=== PATIENT | female | born 1935 | race Caucasian/White ===

== ENCOUNTER → 2016-05-29 | Outpatient (CLI) | payer MEDICARE, BC ==
--- NOTE | 2016-05-29 15:36 | US ---
EXAMINATION TYPE: US carotid duplex BILAT DATE OF EXAM: 05/29/2016 2:24 PM COMPARISON: NONE CLINICAL HISTORY: G45.9 TIA, H53.9 Visual disturbances per order. EXAM MEASUREMENTS: RIGHT: Peak Systolic Velocity (PSV) cm/sec ----- Right CCA: 51.2 ----- Right ICA: 87.7 ----- Right ECA: 74.5 ICA/CCA ratio: 1.7 RIGHT: End Diastole cm/sec ----- Right CCA: 13.8 ----- Right ICA: 20.5 ----- Right ECA: 7.3 LEFT: Peak Systolic Velocity (PSV) cm/sec ----- Left CCA: 62.7 ----- Left ICA: 81.1 ----- Left ECA: 76.7 ICA/CCA ratio: 1.3 LEFT: End Diastole cm/sec ----- Left CCA: 17.2 ----- Left ICA: 24.9 ----- Left ECA: 8.4 VERTEBRALS (direction of flow): Right Vertebral: antegrade Left Vertebral: antegrade Mild atherosclerotic changes with no significant velocity increases. Grayscale images show minimal peripheral plaque in bilateral carotid bulbs, left greater than right. Velocity measurements and ratios remain within normal limits bilaterally. IMPRESSION: No hemodynamically significant stenosis is seen in either internal carotid artery.
== END | disposition home or self-care (01) ==
LOC: RADUSWWP 12:37
PROVIDERS: ATTEND Internal Medicine
DX: G45.9 Transient cerebral ischemic attack, unspecified (principal); H53.9 Unspecified visual disturbance
CPT/HCPCS: 93880

== ENCOUNTER → 2016-10-18 | Outpatient (CLI) | payer MEDICARE, BC ==
--- NOTE | 2016-10-20 07:48 | ENG ---
ELECTRONYSTAGMOGRAM REPORT VNG REPORT: AGE: 81. VNG INDICATIONS: Dizziness and vertigo starting 4 months ago, gradual onset, staying about the same. Dizziness can be precipitated by rolling over on the right or left side, going from a lying to a seated position, looking up or back position, bending over or head down position. Denies difficulty with hearing and has a steady tinnitus in both ears. VNG FINDINGS: Saccades showing intact peak velocities, accuracies and latencies. Gaze with fixation shows no nystagmus in any of the directions of gaze including centrally with vision denied. Tracking shows no significant breakups. Opticokinetic nystagmus shows no significant asymmetry. Static position testing in 6 positions with eyes open and with vision denied shows no nystagmus in any of the positions. Lincoln-Hallpike maneuvers are negative bilaterally. Caloric testing shows an adequate response with a 6% unilateral right calorie weakness, which is within normal limits. IMPRESSION: Unremarkable VNG study. MMODL / IJN: [id number] /
== END | disposition home or self-care (01) ==
LOC: NEUROMAIN 06:43
PROVIDERS: ATTEND Otolaryngology
DX: R42 Dizziness and giddiness (principal)
CPT/HCPCS: 92537; 92540

== ENCOUNTER → 2021-04-27 | Outpatient (CLI) | payer MEDICARE, BC ==
--- NOTE | 2021-04-27 12:48 | ECHOF ---
Referral Reason:I34.0 NONRHEUMATIC MITRAL (VALVE) INSUFFICIENCY MEASUREMENTS -------- HEIGHT: 152.4 cm WEIGHT: 74.8 kg BP: RVIDd: 2.2 cm (< 3.3) IVSd: 1.4 cm (0.6 - 1.1) LVIDd: 3.8 cm (3.9 - 5.3) LVPWd: 1.4 cm (0.6 - 1.1) IVSs: 1.9 cm LVIDs: 2.2 cm LVPWs: 1.5 cm LAESV Index (A-L): 24.43 ml/m Ao Diam: 3.1 cm (2.0 - 3.7) AV Cusp: 1.6 cm (1.5 - 2.6) LA Diam: 3.1 cm (2.7 - 3.8) MV EXCURSION: 18.395 mm (> 18.000) MV EF SLOPE: 84 mm/s (70 - 150) EPSS: 0.9 cm MV E Neftali: 0.92 m/s MV DecT: 244 ms MV A Neftali: 1.14 m/s MV E/A Ratio: 0.81 RAP: 5.00 mmHg RVSP: 25.95 mmHg FINDINGS -------- This was a technically good study. The left ventricular size is normal. There is moderate concentric left ventricular hypertrophy. O verall left ventricular systolic function is normal with, an EF between 55 - 60 %. Normal LAP Grade 1 Diastolic Dysfunction. The right ventricle is normal in size. The left atrial size is normal. Normal LA size by volume 22+/-6 ml/m2. The right atrial size is normal. The aortic valve is trileaflet and appears structurally normal. The mitral valve is normal. Mild mitral regurgitation is present. The tricuspid valve appears structurally normal. Mild tricuspid regurgitation present. Right vent ricular systolic pressure is normal at < 35 mmHg. There is no pulmonic regurgitation present. The aortic root size is normal. Normal inferior vena cava with normal inspiratory collapse consistent with estimated right atrial pre ssure of 5 mmHg. There is no pericardial effusion. CONCLUSIONS -------- 1. The left ventricular size is normal. 2. There is moderate concentric left ventricular hypertrophy. 3. Overall left ventricular systolic function is normal with, an EF between 55 - 60 %. 4. Normal LAP Grade 1 Diastolic Dysfunction. 5. The left atrial size is normal. 6. Normal LA size by volume 22+/-6 ml/m2. 7. Mild mitral regurgitation is present. 8. Mild tricuspid regurgitation present. 9. There is no pericardial effusion. [employer] MANAGER: Ro Hubbard RDCS
== END | disposition home or self-care (01) ==
LOC: RADECHMAIN 11:27
PROVIDERS: ATTEND Internal Medicine
DX: I34.0 Nonrheumatic mitral (valve) insufficiency (principal); I51.7 Cardiomegaly
CPT/HCPCS: 93306

== ENCOUNTER → 2021-05-30 | Outpatient (CLI) | payer MEDICARE, BC ==
--- NOTE | 2021-05-30 15:25 | US ---
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 Bruit EXAM MEASUREMENTS: RIGHT: Peak Systolic Velocity (PSV) cm/sec ----- Right CCA: 55.5 ----- Right ICA: 86.4 ----- Right ECA: 74.7 ICA/CCA ratio: 1.6 RIGHT: End Diastole cm/sec ----- Right CCA: 11.9 ----- Right ICA: 27.0 ----- Right ECA: 0.0 LEFT: Peak Systolic Velocity (PSV) cm/sec ----- Left CCA: 57.4 ----- Left ICA: 79.0 ----- Left ECA: 79.9 ICA/CCA ratio: 1.4 LEFT: End Diastole cm/sec ----- Left CCA: 9.0 ----- Left ICA: 23.2 ----- Left ECA: 0.0 VERTEBRALS (direction of flow): Right Vertebral: Antegrade Left Vertebral: Antegrade Rhythm: Normal No significant stenosis seen IMPRESSION: 1. No significant flow-limiting stenosis. Atheromatous plaquing is present bilaterally. Criteria for Assigning % of Stenosis / Diameter reduction (Estimation based on the indirect measurements of the internal carotid artery velocities (ICA PSV). 1. Normal (no stenosis)=ICA PSV < 125 cm/s: ratio < 2.0: ICA EDV<40 cm/s. 2. Less than 50% stenosis=ICA PSV < 125 cm/s: ratio < 2.0: ICA EDV<40 cm/s. 3. 50 to 69% stenosis=ICA PSV of 125 to 230 cm/s: ration 2.0 ? 4.0: ICA EDV 40-100 cm/s. 4. Greater than 70% stenosis to near occlusion= ICA PSV > 230 cm/s: ratio > 4.0: ICA EDV > 100 cm/s. 5. Near occlusion= ICA PSV velocities may be low or undetectable: variable ratio and ICA EDV. 6. Total occlusion=unable to detect flow.
== END | disposition home or self-care (01) ==
LOC: RADUSWWP 13:29
PROVIDERS: ATTEND Internal Medicine
DX: I65.22 Occlusion and stenosis of left carotid artery (principal)
CPT/HCPCS: 93880

== ENCOUNTER → 2022-07-08 | Outpatient (CLI) | payer MEDICARE, BC ==
--- NOTE | 2022-07-09 23:06 | PE ---
EXAMINATION TYPE: PET CT fusion skull to thigh DATE OF EXAM: 07/08/2022 CLINICAL INDICATION:Female, 86 years old with history of G30.9; TECHNIQUE: Following the intravenous administration of 9.8 mCi of F-18 FDG, images performed of the brain. Images were reviewed on the computer in the coronal, axial, and sagittal planes. Reconstruc rosette rotating images are created on independent workstation and reviewed on the computer. A non-cont rast CT is performed in conjunction with the PET scan. Glucose level 100 mg/dL COMPARISON: CT None, PET/CT None, FINDINGS: Average SUV values of the following regions: Frontal lobe: Right: 4.5 Left: 4.5 Parietal lobe: Right: 4.6 Left: 4.7 Occipital lobe: Right: 5.0 Left: 5.2 Temporal lobe: Right: 4.0 Left: 3.9 IMPRESSION: Mild hypometabolism within the temporal lobes compatible with Alzheimer's.
== END | disposition home or self-care (01) ==
LOC: RADPETMAIN 11:36
PROVIDERS: ATTEND Internal Medicine
DX: G30.9 Alzheimer's disease, unspecified (principal)
CPT/HCPCS: 78815; A9552